=== PATIENT | male | born 1980 | race Caucasian/White ===

== ENCOUNTER 2017-06-15 11:31 | Emergency (ER) | payer OTHER, SELFPAY ==
--- NOTE | 2017-06-15 12:34 | ULT ---
ULTRASOUND WITH DOPPLER DUPLEX VENOUS LEFT LOWER EXTREMITY: CPT: 11332 ICD-10-PCS: B54D INDICATIONS: Pain. TECHNIQUE: Color-flow Doppler, spectral wave-form analysis of pulsed Doppler, and medina-scale imaging with compre ssion and augmentation were used to evaluate the bilateral common femoral, femoral, popliteal, change control coordinator ior tibial, and superficial femoral veins, and the proximal portions of the profunda femoral and grea ter saphenous veins. FINDINGS: There is appropriate compressibility and flow within the imaged deep venous system of the left lower extremity. IMPRESSION: No deep venous thrombosis. POS: CET
[2017-06-15 13:25] LABS: #Eosinphils 0.2 thou/uL (0.0-0.7); #Lymphocytes 1.2 thou/uL (1.20-3.40); #Monocytes 0.4 thou/uL (0.11-0.59); #Neutrophils 4.2 thou/uL (1.40-6.50); %Basophils 0.5 % (0.0-1.0); %Eosinophils 3.1 % (0.0-10.0); %Lymphocytes 19.8 % (21.0-51.0); %Monocytes 7.2 % (0.0-10.0); Hematocrit 45.8 % (42.0-52.0); Red Blood Cell (RBC) Count 5.16 mill/uL (4.70-6.10)
--- NOTE | 2017-06-15 13:42 | RAD ---
AP CHEST: History: Chest pain. Previous history of heart transplant. FINDINGS: AP chest obtained. Sternotomy wires are seen. The lungs are well aerated. No evidence of active intra thoracic disease seen. No evidence of effusions, pneumonia, or pneumothorax seen. IMPRESSION: Unremarkable AP view chest. POS: C
[2017-06-15 13:49] LABS: ALT (SGPT) 10 U/L (8-55); AST (SGOT) 11 U/L (5-34); Alkaline Phosphatase 57 U/L (40-150); Anion Gap 11 mmol/L (10-20); BUN (Urea Nitrogen) 18 mg/dL (8.9-20.6); Bilirubin, Total 1.1 mg/dL (0.2-1.2); CK (CPK) 97 U/L (30-200); Calc. Creatinine Clearance 0 mL/min (70-130); Calcium 9.2 mg/dL (7.8-10.44); Carbon Dioxide 27 mmol/L (22-29); Chloride 103 mmol/L (98-107); Estimated GFR-MDRD 76; Globulin 2.8 g/dL (2.4-3.5); Lipase 10 U/L (8-78); Protein, Total 7.2 g/dL (6.0-8.3); Troponin I Less than 0.010 ng/mL (< 0.028)
--- NOTE | 2017-06-18 15:40 | EKG ---
Test Reason : Blood Pressure : / mmHG Vent. Rate : 077 BPM Atrial Rate : 077 BPM P-R Int : 130 ms QRS Dur : 146 ms QT Int : 412 ms P-R-T Axes : 059 -24 012 degrees QTc Int : 466 ms Sinus rhythm with occasional Premature ventricular complexes Right bundle branch block Minimal voltage criteria for LVH, may be normal variant Abnormal ECG Confirmed by SHERWIN PATRICIO D.O. ([id number]), image editor TODD POWER ([id number]) on 06/18/2017 3:39:42 PM Referred By: Confirmed By:SHERWIN PATRICIO D.O.
== END 2017-06-15 15:42 | disposition home or self-care (01) ==
LOC: ERS 11:31
DX: M25.572 Pain in left ankle and joints of left foot (principal); R60.0 Localized edema; F32.9 Major depressive disorder, single episode, unspecified; I10 Essential (primary) hypertension; E78.5 Hyperlipidemia, unspecified; Z79.899 Other long term (current) drug therapy
CPT/HCPCS: 71010; 80053; 82553; 83690; 83880; 84484; 85025; 93005